=== PATIENT | male | born 1980 | race Caucasian/White ===

== ENCOUNTER 2018-02-08 10:00 | Emergency (ER) | payer OTHER ==
[2018-02-08 10:06] VITALS: BP 114/66
--- NOTE | 2018-02-08 10:21 | EDPHY ---
H & P Stated Complaint: Increased anxiety attacks x 3-4 wks Time Seen by Provider: 02/08/18 10:18 HPI/ROS: HPI: This is a 37-year-old male who presents with Chief Complaint: Increased anxiety attacks x 3-4 wks Location: psych Quality: Anxiety attack Duration: 3-4 weeks Signs and Symptoms: no auditory hallucinations, no visual hallucinations, no suicidal ideation with a plan, no homicidal ideation, no paranoia Timing: Acute on chronic Severity: Moderate to severe Context: Patient has a history of anxiety and depression presents with complaints of increasing anxiety attacks over the last 3-4 weeks. Was on Wellbutrin but stopped it 3-4 months ago. PCP started Xanax 0.25 mg as needed 3 weeks ago. Last week he increased to 1 mg of Xanax twice daily. Patient reports that he only has 4 pills left. He was evaluated at [facility] yesterday evening. He has an appointment with the psychiatric nurse tomorrow at 5:30 p.m. He complains of sweaty palms. Significant other at bedside. Modifying Factors: Xanax Comment: ROS: A comprehensive 10 system review of systems is otherwise negative aside from elements mentioned in the history of present illness. MEDICAL/SURGICAL/SOCIAL HISTORY: Medical history: Anxiety, depression Surgical history: Denies Social history: Never smoked. Family history noncontributory. CONSTITUTIONAL: Nontoxic-appearing adult white male, awake and alert, no obvious distress HEENT: Atraumatic and normocephalic, PERRL, EOMI. Nares patent; no rhinorrhea; no nasal mucosal edema. Tympanic membranes clear. Oropharynx clear, no exudate and moist pink mucosa. Airway patent. No lymphadenopathy. No meningismus. Cardiovascular: Normal S1/S2, regular rate, regular rhythm, without murmur rub or gallop. PULMONARY/CHEST: Symmetrical and nontender. Clear to auscultation bilaterally. Good air movement. No accessory muscle usage. ABDOMEN: Soft, nondistended, nontender, no rebound, no guarding, no peritoneal signs, no masses or organomegaly. No CVAT. EXTREMITIES: 2/2 pulses, strength 5/5, no deformities, no clubbing, no cyanosis or edema. NEUROLOGICAL: no focal neuro deficits. GCS 15. SKIN: Warm and dry, no erythema. no rash. Good capillary refill. PSYCH: Good eye contact, no flight of ideas, organized thought process, good insight and judgment, no auditory hallucinations, no visual hallucinations, no suicidal ideation with a plan, no homicidal ideation, no paranoia Source: Patient Exam Limitations: No limitations - Personal History Current Tetanus Diphtheria and Acellular Pertussis (TDAP): Yes - Medical/Surgical History Hx Alcoholism: Yes Other PMH: anxiety. depression - Social History Smoking Status: Never smoked Constitutional: Initial Vital Signs Temperature (C) 36.9 C 02/08/18 10:01 Heart Rate 82 02/08/18 10:01 Respiratory Rate 18 02/08/18 10:01 Blood Pressure 114/66 02/08/18 10:01 O2 Sat (%) 98 02/08/18 10:01 O2 Delivery Mode Room Air Allergies/Adverse Reactions: No Known Allergies Allergy (Unverified 02/08/18 10:06) Home Medications: Medication Instructions Recorded ALPRAZolam [Xanax 0.25 MG (*)] 0.25 mg PO PRN 02/08/18 buPROPion [Wellbutrin 75mg (*)] 75 mg PO DAILY #30 tab 02/08/18 hydrOXYzine HCL [Vistaril 25MG] 25 mg PO Q6 PRN #12 tab 02/08/18 Medical Decision Making ED Course/Re-evaluation: Vital signs reviewed and stable upon arrival. Does not meet M1 hold or Detainer criteria. 1015: TLC at bedside for evaluation. Recommends starting Wellbutrin again. Does not recommend inpatient psychiatric admission. Patient has an appointment tomorrow with the psychiatric nurse. I have prescribed him hydroxyzine for anxiety and Wellbutrin. He is to be discharged to the safety of his significant other. Work note provided for 1 week. This patient was seen under the supervision of my secondary supervising physician. I evaluated care for this patient independently. Discussed this patient with Dr. Chappell. Differential Diagnosis: Differential diagnosis includes but is not limited to anxiety disorder, depression, bipolar disorder, suicidal ideation. Departure - Departure Disposition: Home, Routine, Self-Care Clinical Impression: Major depression Qualifiers: Major depression recurrence: recurrent Active/Remission status: currently active Major depression episode severity: moderate Qualified Code(s): F33.1 - Major depressive disorder, recurrent, moderate Anxiety disorder Qualifiers: Anxiety disorder type: generalized anxiety disorder Qualified Code(s): F41.1 - Generalized anxiety disorder Condition: Good Instructions: Depression (ED), Anxiety (ED) Additional Instructions: Start taking Wellbutrin daily. Take Hydroxyzine every 6 hours as needed as for anxiety. Keep psychiatric nurse evaluation appointment tomorrow. Referrals: Tony Gibson MD [Primary Care Provider] - As per Instructions [facility],. [Clinic] - As per Instructions Stand Alone Forms: Work Excuse Prescriptions: buPROPion [Wellbutrin 75mg (*)] 75 mg PO DAILY #30 tab hydrOXYzine HCL [Vistaril 25MG] 25 mg PO Q6 PRN #12 tab PRN Reason: Anxiety
== END 2018-02-08 11:34 | disposition home or self-care (01) ==
DX: F33.1 Major depressive disorder, recurrent, moderate (principal); F41.1 Generalized anxiety disorder

== ENCOUNTER 2018-02-23 09:01 | Emergency (ER) | payer OTHER ==
--- NOTE | 2018-02-23 09:17 | EDPHY ---
H & P Stated Complaint: anxiety Time Seen by Provider: 02/23/18 09:17 - Personal History Current Tetanus/Diphtheria Vaccine: Unsure Current Tetanus Diphtheria and Acellular Pertussis (TDAP): Unsure - Medical/Surgical History Hx Asthma: No Hx Chronic Respiratory Disease: No Hx Diabetes: No Hx Cardiac Disease: No Hx Renal Disease: No Hx Cirrhosis: No Hx Alcoholism: Yes Hx HIV/AIDS: No Hx Splenectomy or Spleen Trauma: No Other PMH: anxiety. depression - Social History Smoking Status: Never smoked Constitutional: Initial Vital Signs Temperature (C) 36.5 C 02/23/18 09:12 Heart Rate 92 02/23/18 09:12 Respiratory Rate 16 02/23/18 09:12 Blood Pressure 132/113 H 02/23/18 09:12 O2 Sat (%) 96 02/23/18 09:12 O2 Delivery Mode Room Air Allergies/Adverse Reactions: No Known Allergies Allergy (Unverified 02/23/18 09:11) Home Medications: Medication Instructions Recorded ALPRAZolam [Xanax 0.25 MG (*)] 0.25 mg PO PRN 02/08/18 Olanzapine 02/23/18 lamOTRIGine 02/23/18 Medical Decision Making ED Course/Re-evaluation: CHIEF COMPLAINT: Panic attack HISTORY OF PRESENT ILLNESS: The patient is a 37 y/o male with a history of anxiety and depression complaining of a panic attack today. Around 4 months ago his psychiatrist told him to stop taking Wellbutrin as it was a stimulant. He has been taking his psychiatric medications as prescribed. He reports that for the last 3 weeks he has woken up and had a panic attack. His psychiatrist, at [facility] is concerned as the patient is "living in fear of the panic attacks". He denies suicidal or homicidal ideations. Last week he was here for a similar episode and given Hydroxyzine. When he was discharged he was placed on Alprazolam, Lamictal, Olanzapine (short and long acting), and Hydroxyzine. Today he became concerned again as his panic attacks have not improved. No chest pain, shortness of breath, abdominal pain, urinary or bowel complaints, numbness, paresthesias, fevers. REVIEW OF SYSTEMS: A comprehensive 10 system review of systems is otherwise negative aside from elements mentioned in the history of present illness and medical decision making. PHYSICAL EXAM: HR, BP, O2 Sat, RR. Temp noted General Appearance: Anxious, alert, well hydrated, appropriate, and non-toxic appearing. Head: Atraumatic without scalp tenderness or obvious injury Eyes: Pupils equal, round, reactive to light and accommodation, EOMI, no trauma , no injection. Ears: Clear bilaterally, no perforation, normal landmarks Nose: Atraumatic, no rhinorrhea, clear. Throat: There is no erythema or exudates, no lesions, normal tonsils, mucus membranes moist. Neck: Supple, 2+ carotid upstroke, nontender, no lymphadenopathy. Respiratory: No retractions, no distress, no wheezes, and no accessory muscle use. Lungs are clear to auscultation bilaterally. Cardiovascular: Regular rate and rhythm, no murmurs, rubs, or gallops. Bilateral carotid, radial, dorsalis pedis, and posterior tibial pulses intact. Good capillary refill all extremities. Gastrointestinal: Abdomen is soft, nontender, non-distended, no masses, no rebound, no guarding, no peritoneal signs. Musculoskeletal: Normal active ROM of all extremities, atraumatic. Neurological: Alert, appropriate, and interactive. The patient has normal DTRs and non-focal cranial nerves, motor, sensory, and cerebellar exam. Skin: No rashes, good turgor, no nodules on palpation. Past medical history: Anxiety and depression Past surgical history: Denies Family history: Denies Social history: Lives in [place], , employed DIAGNOSTICS/PROCEDURES/CRITICAL CARE TIME: Not indicated. DIFFERENTIAL DIAGNOSIS: The differential diagnosis for the patient's panic attack included but was not limited to anxiety, functional and major depression, situational depression, medication side effect, drugs, and alcohol abuse. MEDICAL DECISION MAKING: The patient is a 37 y/o male with a history of anxiety and depression presenting with a panic attack today. He does have a psychiatrist and has been seen in this emergency department numerous times. Today he is anxious and "just wants to go to sleep". Labs ordered. Psychiatric evaluation pending. 1mg IV Ativan administered. 1300: I spoke with [facility] who reports that this patient does not meet criteria for an M1 hold or inpatient care. 1315: Reassessed patient and had a long discussion regarding establishing a local mental health provider. 1mg IV Ativan administered prior to discharge. I will prescribe him Xanax and Wellbutrin. Return precautions provided; patient is comfortable with this. - Data Points Laboratory Results: Laboratory Results 02/23/18 09:28 02/23/18 09:28 02/23/18 02/23/18 02/23/18 09:28 09:28 09:28 WBC RBC Hgb Hct MCV MCH MCHC RDW Plt Count MPV Neut % (Auto) Lymph % (Auto) [place] % (Auto) Eos % (Auto) Baso % (Auto) Nucleat RBC Rel Count Absolute Neuts (auto) Absolute Lymphs (auto) Absolute Monos (auto) Absolute Eos (auto) Absolute Basos (auto) Absolute Nucleated RBC Immature Gran % Immature Gran # Sodium 140 mEq/L mEq/L (135-145) Potassium 4.3 mEq/L mEq/L (3.3-5.0) Chloride 105 mEq/L mEq/L (97-110) Carbon Dioxide 24 mEq/l mEq/l (22-31) Anion Gap 11 mEq/L mEq/L (6-14) BUN 16 mg/dL mg/dL (7-23) Creatinine 1.0 mg/dL mg/dL (0.7-1.3) Estimated GFR > 60 Glucose 104 mg/dL H mg/dL (70-100) Calcium 10.2 mg/dL mg/dL (8.5-10.4) TSH 1.670 uIU/mL uIU/mL (0.465-4.680) Urine Opiates Screen NEGATIVE (NEGATIVE) Urine Barbiturates NEGATIVE (NEGATIVE) Ur Phencyclidine Scrn NEGATIVE (NEGATIVE) Ur Amphetamine Screen NEGATIVE (NEGATIVE) U Benzodiazepines Scrn NEGATIVE (NEGATIVE) Urine Cocaine Screen NEGATIVE (NEGATIVE) U Marijuana (THC) Screen NON-NEGATIVE H (NEGATIVE) Ethyl Alcohol < 10 mg/dL mg/dL (0-10) 02/23/18 09:28 WBC 15.46 10^3/uL H 10^3/uL (3.80-9.50) RBC 6.12 10^6/uL 10^6/uL (4.40-6.38) Hgb 19.2 g/dL H g/dL (13.7-17.5) Hct 53.4 % H % (40.0-51.0) MCV 87.3 fL fL (81.5-99.8) MCH 31.4 pg pg (27.9-34.1) MCHC 36.0 g/dL g/dL (32.4-36.7) RDW 11.9 % % (11.5-15.2) Plt Count 258 10^3/uL 10^3/uL (150-400) MPV 8.0 fL L fL (8.7-11.7) Neut % (Auto) 88.9 % H % (39.3-74.2) Lymph % (Auto) 4.7 % L % (15.0-45.0) [place] % (Auto) 4.9 % % (4.5-13.0) Eos % (Auto) 0.3 % L % (0.6-7.6) Baso % (Auto) 0.5 % % (0.3-1.7) Nucleat RBC Rel Count 0.0 % % (0.0-0.2) Absolute Neuts (auto) 13.77 10^3/uL H 10^3/uL (1.70-6.50) Absolute Lymphs (auto) 0.72 10^3/uL L 10^3/uL (1.00-3.00) Absolute Monos (auto) 0.75 10^3/uL 10^3/uL (0.30-0.80) Absolute Eos (auto) 0.04 10^3/uL 10^3/uL (0.03-0.40) Absolute Basos (auto) 0.07 10^3/uL 10^3/uL (0.02-0.10) Absolute Nucleated RBC 0.00 10^3/uL 10^3/uL (0-0.01) Immature Gran % 0.7 % % (0.0-1.1) Immature Gran # 0.11 10^3/uL H 10^3/uL (0.00-0.10) Sodium Potassium Chloride Carbon Dioxide Anion Gap BUN Creatinine Estimated GFR Glucose Calcium TSH Urine Opiates Screen Urine Barbiturates Ur Phencyclidine Scrn Ur Amphetamine Screen U Benzodiazepines Scrn Urine Cocaine Screen U Marijuana (THC) Screen Ethyl Alcohol Medications Given: Discontinued Medications Lorazepam (Ativan Injection) 1 mg IVP EDNOW ONE Stop: 02/23/18 10:08 Last Admin: 02/23/18 10:10 Dose: 1 mg Departure - Departure Disposition: Home, Routine, Self-Care Clinical Impression: Anxiety Condition: Good Instructions: Anxiety (ED) Additional Instructions: 1. Follow-up with your mental health provider as directed. I recommend [facility] with [id number] to see which local psychiatrist is covered by your plan. 2. Return to the ED for thoughts of self-harm, racing thoughts or other concerns. 3. Take Wellbutrin as prescribed. 4. Take Xanax as prescribed. Referrals: Tony Gibson MD [Primary Care Provider] - As per Instructions Darryl Krishna MD [Medical Doctor] - As per Instructions Report Scribed for: Geovanny Chappell Report Scribed by: Diana Heaton Date of Report: 02/23/18 Time of Report: 09:19
[2018-02-23 10:06] LABS: PLATELET COUNT 258 10^3/uL (150-400)
[2018-02-23] MEDS ORDERED: LORazepam 2 MG/ML INJ ONE (10:06)
[2018-02-23] MEDS ORDERED: LORazepam 2 MG/ML INJ IVP ONE ×2 (10:07→13:28)
[2018-02-23 13:48] VITALS: BP 130/74
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
--- NOTE | 2018-02-23 14:04 | ASMTTCLDSP ---
TLC Discharge Disposition Disposition: Answers: Discharge If Answers: Yes DISCHARGED: Patient/family given suicide hotline info & [facility] brochure? Disposition Notes: Notes: Pt stated commitment or ability to keep self safe, denied thoughts of self harm or harm to others. Pt expressed a desire to f/u with [facility]. Pt was given local hotline information and [facility] brochure After an Attempt and encouraged to follow up with [facility]. Discharge Concerns/Recommendations: Notes: In consultation with [facility] ED physician, Geovanny Chappell MD, Dr. Chappell concurred that pt does not appear to meet 27-65 criteria requiring psychiatric hospitalization as pt does not appear to be an imminent risk of harm to self/others/gravely disabled due to a mental illness condition. Was patient given the Answers: Not applicable Inpatient Behavioral Health Prohibited Belongings List while in the ED? Date Signed: 02/23/2018 02:03 PM Electronically Signed By:Car Phillips
== END 2018-02-23 13:47 | disposition home or self-care (01) ==
DX: F41.9 Anxiety disorder, unspecified (principal); Z79.899 Other long term (current) drug therapy
CPT/HCPCS: 80305; 96374; G0480; J2060